=== PATIENT | male | born 1945 | race Caucasian/White ===

== ENCOUNTER 2023-04-07 10:04 | Outpatient (CLI) | payer MEDICARE ==
--- NOTE | 2023-04-07 13:41 | XRAY Report ---
PROCEDURE: Chest 2 View X-Ray INDICATIONS: PRODUCTIVE COUGH TECHNIQUE: 2 views of the chest were acquired. COMPARISON: Chest regressed 01/03/2008 FINDINGS: Surgical changes and devices: None. Lungs and pleura: No pleural effusions or pneumothorax. Lungs are well-expanded and clear. Mediastinum: Mediastinal contours appear normal. Heart size is normal. Bones and chest wall: No suspicious bony lesions. Overlying soft tissues appear unremarkable. Mil d degenerative changes are seen in the spine. IMPRESSION: No acute cardiopulmonary abnormality. Reviewed by: Xander Baumann MD on 04/07/2023 1:39 PM PDT Approved by: Xander Baumann MD on 04/07/2023 1:39 PM PDT Station ID: [id number]
== END 2023-04-07 23:59 | disposition home or self-care (01) ==
LOC: DI.S 10:04
PROVIDERS: ATTEND Physician Assistant Medical
DX: R05.8 Other specified cough (principal)

== ENCOUNTER 2024-01-01 08:00 | Outpatient (CLI) | payer MEDICARE ==
--- NOTE | 2024-01-01 14:38 | XRAY Report ---
PROCEDURE: Cervical Spine 2-3V INDICATIONS: CERVICAL RADICULOPATHY TECHNIQUE: 3 view(s) of the cervical spine were acquired. COMPARISON: None. FINDINGS: Bones: No fractures or dislocations to the C7 level. The lateral masses of C1 appear intact on the odontoid view. Severe degenerative changes at C5-C6 and C6-C7 with endplate sclerosis, osteophytosis , disc height loss and facet/uncal arthropathy. Remainder of the spine demonstrates mild multilevel d egenerative changes. Straightening of the normal cervical lordosis. No suspicious bony lesions. Soft tissues: No prevertebral soft tissue swelling. Visualized lung apices are clear. IMPRESSION: 1.No displaced fracture or traumatic subluxation. 2.Multilevel degenerative changes of the cervical spine, severe at C5-C6 and C6-C7. Reviewed by: García Laughlin MD on 01/01/2024 2:37 PM PDT Approved by: García Laughlin MD on 01/01/2024 2:37 PM PDT Station ID: [id number]
--- NOTE | 2024-01-01 15:35 | XRAY Report ---
PROCEDURE: Hand 1-2V BL INDICATIONS: PAIN IN RIGHT HAND TECHNIQUE: 3 views of the hand(s) acquired. COMPARISON: None. FINDINGS: Bones: No fractures or dislocations bilaterally. No suspicious bony lesions bilaterally. Left hand demonstrate severe degenerative changes at the DIP joint of the second digit with endplate sclerosis, subchondral cysts and juxta-articular osteophytosis. Remainder of the IP joints demonstrat e mild joint space narrowing and juxta-articular osteophytosis. Corticated ossific density in the ra dial aspect of the first IP joint likely represents an accessory ossicle or sequela of remote trauma. Additional corticated, mildly displaced ossific density in the radial aspect of the second DIP joint likely represents sequela of remote injury. Right hand demonstrate mild diffuse IP joint space narrowing and juxta-articular osteophytosis. Soft tissues: No suspicious soft tissue calcifications or masses. IMPRESSION: 1.No acute bony abnormality bilaterally. 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 Reviewed by: García Laughlin MD on 01/01/2024 3:33 PM PDT Approved by: García Laughlin MD on 01/01/2024 3:33 PM PDT Station ID: [id number]
== END 2024-01-01 23:59 | disposition home or self-care (01) ==
LOC: DI.S 08:00
PROVIDERS: ATTEND Registered Nurse
DX: M19.041 Primary osteoarthritis, right hand (principal); M47.22 Other spondylosis with radiculopathy, cervical region

== ENCOUNTER 2024-01-01 13:06 | Outpatient (CLI) | payer MEDICARE ==
[2024-01-01 20:52] LABS: BASOPHILS % (AUTO) 0.4 %; EOSINOPHILS # (AUTO) 0.1 10^3/uL (0.0-0.7); EOSINOPHILS % (AUTO) 1.6 %; HCT - HEMATOCRIT 46.7 % (42.0-52.0); LYMPHOCYTES # (AUTO) 1.5 10^3/uL (1.5-3.5); LYMPHOCYTES % (AUTO) 25.9 %; MEAN CORPUSCULAR HEMOGLOBIN 31.4 pg (27.0-31.0); MEAN CORPUSCULAR HGB CONC 32.1 g/dL (32.0-36.0); MEAN CORPUSCULAR VOLUME 97.9 fL (80.0-94.0); MEAN PLATELET VOLUME 11.3 fL (7.4-11.4); MONOCYTES # (AUTO) 0.6 10^3/uL (0.0-1.0); MONOCYTES % (AUTO) 10.6 %; NEUTROPHILS # (AUTO) 3.5 10^3/uL (1.5-6.6); NEUTROPHILS % (AUTO) 61.1 %; PLT - PLATELET COUNT 98 10^3/uL (130-450); RED BLOOD COUNT 4.77 10^6/uL (4.70-6.10); RED CELL DISTRIBUTION WIDTH 14.1 % (12.0-15.0); WHITE BLOOD COUNT 5.7 x10^3/uL (4.8-10.8)
[2024-01-01 21:04] LABS: RHEUMATOID FACTOR NEGATIVE (Negative)
[2024-01-01 21:07] LABS: ALBUMIN 4.3 g/dL (3.2-5.5); ALKALINE PHOSPHATASE 54 IU/L (42-121); ALT ALANINE AMINOTRANSFERASE 19 IU/L (10-60); AST ASPARTATE AMINOTRANSFERASE 19 IU/L (10-42); BILIRUBIN,TOTAL 1.4 mg/dL (0.2-1.0); BUN - BLOOD UREA NITROGEN 15 mg/dL (6-20); CALCIUM 9.6 mg/dL (8.5-10.3); CARBON DIOXIDE - CO2 29 mmol/L (21-32); CHLORIDE 105 mmol/L (101-111); CRP - C-REACTIVE PROTEIN < 0.5 mg/dL (<0.5); GFR - MDRD 72 (>89); GLUCOSE 101 mg/dL (74-104); SODIUM 138 mmol/L (135-145); TOTAL PROTEIN 6.5 g/dL (6.4-8.9)
== END 2024-01-01 13:07 | disposition home or self-care (01) ==
LOC: LAB.S 13:06
PROVIDERS: ATTEND Registered Nurse
DX: M54.12 Radiculopathy, cervical region (principal); M25.541 Pain in joints of right hand
CPT/HCPCS: 36415; 80053; 85025; 86140; 86430